=== PATIENT | female | born 1960 | race Two or more races ===

== ENCOUNTER → 2020-02-18 | Emergency (ER) | payer MEDICAID, SELFPAY ==
[~2020-02-18] VITALS: Ht 180.3 cm; Wt 81.7 kg
[~2020-02-18] MED LIST: EPINEPHrine HCL 1 MG/10 ML SYRG IV ONE; SODIUM BICARBONATE 8.4% INJ 50ML SYRINGE IV ONE
[2020-02-18 10:27] VITALS: BP 0/0
== END | disposition expired ==
LOC: EDBD 10:22 → ER 10:22
DX: U07.1 COVID-19 (principal); I46.9 Cardiac arrest, cause unspecified; J96.90 Respiratory failure, unspecified, unspecified whether with hypoxia or hypercapnia; I10 Essential (primary) hypertension; E11.9 Type 2 diabetes mellitus without complications
CPT/HCPCS: 31500; 87635; 92950; 99001; 99285; J0171